=== PATIENT | male | born 1955 | race Caucasian/White ===

== ENCOUNTER 2016-12-16 22:57 | Emergency (ER) | payer OTHER ==
[~2016-12-16] VITALS: Ht 170.1 cm; Wt 77.1 kg
[~2016-12-16 22:57] MED LIST: DAYPRO600 M1 PO; ROBAXIN750 MG PO; VICODIN 500 MG-1 TAB PO
[2016-12-16 23:05] VITALS: BP 158/85
[2016-12-16] MEDS ORDERED: TRAMADOL HCL50 MG PO (23:06)
[2016-12-16] MEDS ORDERED: LISINOPRIL20 MG PO (23:07)
[2016-12-16] MEDS ORDERED: METOPROLOL TART50 M1 PO (23:07)
[2016-12-17] MEDS ORDERED: CYCLOBENZAPRINE10 MG PO (01:44)
== END 2016-12-17 02:13 | disposition home or self-care (01) ==
LOC: ED 22:57
DX: M54.5 Low back pain (principal); F17.200 Nicotine dependence, unspecified, uncomplicated

== ENCOUNTER → 2017-01-31 | Outpatient (CLI) | payer OTHER ==
[~2017-01-31] MED LIST changes: +CYCLOBENZAPRINE10 MG PO; +LISINOPRIL20 MG PO; +METOPROLOL TART50 M1 PO; +TRAMADOL HCL50 MG PO
== END | disposition home or self-care (01) ==
LOC: US 16:22
DX: M79.89 Other specified soft tissue disorders (principal)

== ENCOUNTER 2017-02-21 15:07 | Emergency (ER) | payer OTHER ==
[~2017-02-21] VITALS: Wt 79.4 kg
[2017-02-21 15:45] LABS: BASO # 0.1 10*3/uL (0.0-0.1); BASO % 0.7 % (0.0-1.0); EOS # 0.1 10*3/uL (0.0-0.4); HEMATOCRIT 41.8 % (42.0-52.0); HEMOGLOBIN 14.4 g/dl (14.0-18.0); LYMPH # 2.6 10*3/uL (1.3-4.4); MEAN CELL VOLUME 88.9 fl (80.0-94.0); MEAN CORPUSCULAR HGB 30.6 pg (27.0-31.0); MEAN CORPUSCULAR HGB CONC 34.4 g/dl (33.0-37.0); MEAN PLATELET VOLUME 8.9 fl (9.6-12.3); MONO # 1.5 10*3/uL (0.1-1.0); NEUT # 7.9 10*3/uL (2.3-7.9); NEUT % 64.6 % (47.0-73.0); PLATELET COUNT AUTOMATED 255 10*3/uL (130-400); RED CELL DISTRI WIDTH 12.5 % (0-14.5); WHITE BLOOD COUNT 12.3 10*3/uL (4.8-10.8)
[2017-02-21 15:59] LABS: ACT PARTIAL THROMBO TIME 26.1 SECONDS (20.8-31.5)
[2017-02-21 16:04] LABS: ALBUMIN 2.5 gm/dl (3.1-4.5); ALKALINE PHOSPHATASE 79 U/L (45-117); BUN 12 mg/dl (7-24); CHLORIDE 101 mmol/L (98-107); CREATININE 0.72 mg/dL (0.70-1.30); LIPASE 168 U/L (73-393); POTASSIUM 3.5 mmol/L (3.5-5.1); SGOT/AST 17 IU/L (3-35); SGPT/ALT 24 U/L (12-78); SODIUM 136 mmol/L (136-145); TOTAL PROTEIN 6.3 gm/dL (6.4-8.2)
[2017-02-21 16:06] LABS: TROPONIN I < 0.015 ng/ml (<0.045)
[2017-02-21 18:45] VITALS: BP 145/95
== END 2017-02-21 21:38 | disposition other institution (70) ==
LOC: ED 15:07
PROVIDERS: Physician Assistant
DX: I26.92 Saddle embolus of pulmonary artery without acute cor pulmonale (principal); F17.210 Nicotine dependence, cigarettes, uncomplicated; E11.9 Type 2 diabetes mellitus without complications; J44.9 Chronic obstructive pulmonary disease, unspecified; I25.10 Atherosclerotic heart disease of native coronary artery without angina pectoris

== ENCOUNTER 2018-11-11 07:21 | Emergency (ER) | payer OTHER ==
[~2018-11-11] VITALS: Ht 170.1 cm; Wt 79.4 kg
--- NOTE | ~2018-11-11 | EKG ---
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
--- NOTE | ~2018-11-11 | EKG ---
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
[2018-11-11 07:26] VITALS: BP 121/70
[2018-11-11 07:52] LABS: BASO # 0.1 10*3/uL (0.0-0.1); BASO % 0.8 % (0.0-1.0); EOS # 0.2 10*3/uL (0.0-0.4); EOS % 1.8 % (1.0-4.0); HEMATOCRIT 49.1 % (42.0-52.0); HEMOGLOBIN 16.4 g/dl (14.0-18.0); LYMPH # 2.4 10*3/uL (1.3-4.4); LYMPH % 24.3 % (27.0-41.0); MEAN CELL VOLUME 90.6 fl (80.0-94.0); MEAN CORPUSCULAR HGB 30.3 pg (27.0-31.0); MEAN CORPUSCULAR HGB CONC 33.4 g/dl (33.0-37.0); MEAN PLATELET VOLUME 9.6 fl (9.6-12.3); MONO # 1.2 10*3/uL (0.1-1.0); NEUT # 5.9 10*3/uL (2.3-7.9); NEUT % 60.9 % (47.0-73.0); PLATELET COUNT AUTOMATED 235 10*3/uL (130-400); RED BLOOD COUNT 5.42 10*6/uL (4.50-5.90); WHITE BLOOD COUNT 9.7 10*3/uL (4.8-10.8)
[2018-11-11 08:03] LABS: ACT PARTIAL THROMBO TIME 27.9 SECONDS (20.0-32.1)
[2018-11-11 08:09] LABS: ALKALINE PHOSPHATASE 85 U/L (45-117); BUN 12 mg/dl (7-24); CHLORIDE 108 mmol/L (98-107); SGOT/AST 23 IU/L (3-35); SGPT/ALT 30 U/L (12-78); SODIUM 140 mmol/L (136-145); TOTAL PROTEIN 6.5 gm/dL (6.4-8.2)
[2018-11-11 08:12] LABS: TROPONIN I < 0.015 ng/ml (<0.045)
== END 2018-11-11 12:13 | disposition home or self-care (01) ==
LOC: ED 07:21
PROVIDERS: Emergency Medicine
DX: R09.1 Pleurisy (principal); R07.89 Other chest pain; R06.02 Shortness of breath; F17.200 Nicotine dependence, unspecified, uncomplicated; Z79.899 Other long term (current) drug therapy; Z90.89 Acquired absence of other organs

== ENCOUNTER → 2020-04-20 | Outpatient (CLI) | payer OTHER | END | disposition home or self-care (01) | LOC: RAD 10:18 | PROVIDERS: ATTEND Family Medicine | DX: S29.9XXA Unspecified injury of thorax, initial encounter (principal); X58.XXXA Exposure to other specified factors, initial encounter; Y93.89 Activity, other specified; Y92.89 Other specified places as the place of occurrence of the external cause; Y99.8 Other external cause status ==

== ENCOUNTER → 2021-05-02 | Outpatient (CLI) | payer OTHER ==
[2021-05-02 17:43] LABS: CREATININE 0.76 mg/dL (0.70-1.30)
== END | disposition home or self-care (01) ==
LOC: LAB 15:43 → CT 15:43
PROVIDERS: ATTEND Family Medicine
DX: I27.82 Chronic pulmonary embolism (principal)

== ENCOUNTER 2021-10-07 18:52 | Emergency (ER) | payer OTHER ==
[~2021-10-07] VITALS: Ht 170.1 cm; Wt 77.1 kg
[2021-10-07 19:03] VITALS: BP 123/59
[2021-10-07 20:39] LABS: BASO # 0.1 10*3/uL (0.0-0.1); BASO % 1.1 % (0.0-1.0); EOS # 0.1 10*3/uL (0.0-0.4); EOS % 1.6 % (1.0-4.0); HEMATOCRIT 44.6 % (42.0-52.0); LYMPH # 2.3 10*3/uL (1.3-4.4); LYMPH % 32.3 % (27.0-41.0); MEAN CELL VOLUME 88.3 fl (80.0-94.0); MEAN CORPUSCULAR HGB 29.9 pg (27.0-31.0); MEAN CORPUSCULAR HGB CONC 33.9 g/dl (33.0-37.0); MEAN PLATELET VOLUME 9.8 fl (9.6-12.3); MONO # 1.1 10*3/uL (0.1-1.0); MONO % 15.2 % (3.0-9.0); NEUT # 3.5 10*3/uL (2.3-7.9); NEUT % 49.7 % (47.0-73.0); PLATELET COUNT AUTOMATED 265 10*3/uL (130-400); RED BLOOD COUNT 5.05 10*6/uL (4.50-5.90); RED CELL DISTRI WIDTH 12.7 % (0-14.5); WHITE BLOOD COUNT 7.1 10*3/uL (4.8-10.8)
[2021-10-07 21:01] LABS: CHLORIDE 105 mmol/L (98-107); CREATININE 0.75 mg/dL (0.70-1.30); POTASSIUM 3.4 mmol/L (3.5-5.1); SGOT/AST 20 IU/L (3-35); SGPT/ALT 30 U/L (12-78); SODIUM 137 mmol/L (136-145); TOTAL PROTEIN 6.4 gm/dL (6.4-8.2)
[2021-10-07 21:03] LABS: ALKALINE PHOSPHATASE 81 U/L (45-117); BUN 14 mg/dl (7-24)
== END 2021-10-08 00:12 | disposition home or self-care (01) ==
LOC: ED 18:52
PROVIDERS: Emergency Medicine
DX: U07.1 COVID-19 (principal); I10 Essential (primary) hypertension; Z90.89 Acquired absence of other organs

== ENCOUNTER → 2021-10-07 | Outpatient (CLI) | payer OTHER | END | disposition home or self-care (01) | LOC: COVID19 12:21 | PROVIDERS: ATTEND Internal Medicine | DX: U07.1 COVID-19 (principal) ==

== ENCOUNTER 2022-09-03 09:28 | Emergency (ER) | payer OTHER ==
[~2022-09-03] VITALS: Wt 78.9 kg
[2022-09-03 09:45] VITALS: BP 158/80
[2022-09-03 09:53] LABS: BASO # 0.1 10*3/uL (0.0-0.1); BASO % 0.9 % (0.0-1.0); EOS # 0.2 10*3/uL (0.0-0.4); EOS % 2.1 % (1.0-4.0); HEMATOCRIT 45.4 % (42.0-52.0); LYMPH # 3.8 10*3/uL (1.3-4.4); LYMPH % 39.4 % (27.0-41.0); MEAN CELL VOLUME 92.1 fl (80.0-94.0); MEAN CORPUSCULAR HGB 30.6 pg (27.0-31.0); MEAN CORPUSCULAR HGB CONC 33.3 g/dl (33.0-37.0); MEAN PLATELET VOLUME 9.9 fl (9.6-12.3); MONO % 9.9 % (3.0-9.0); NEUT # 4.6 10*3/uL (2.3-7.9); NEUT % 47.6 % (47.0-73.0); PLATELET COUNT AUTOMATED 235 10*3/uL (130-400); RED BLOOD COUNT 4.93 10*6/uL (4.50-5.90); RED CELL DISTRI WIDTH 12.9 % (0-14.5); WHITE BLOOD COUNT 9.7 10*3/uL (4.8-10.8)
[2022-09-03 10:16] LABS: ALKALINE PHOSPHATASE 69 U/L (46-116); BUN 14 mg/dl (9-23); CHLORIDE 108 mmol/L (98-107); POTASSIUM 3.9 mmol/L (3.4-5.1); SGPT/ALT 20 U/L (10-49); TOTAL PROTEIN 6.2 gm/dL (6.0-8.0)
== END 2022-09-03 14:04 | disposition home or self-care (01) ==
LOC: ED 09:28
PROVIDERS: Internal Medicine
DX: R07.89 Other chest pain (principal); M62.838 Other muscle spasm; I10 Essential (primary) hypertension

== ENCOUNTER 2023-10-31 07:27 | Emergency (ER) | payer OTHER ==
[~2023-10-31] VITALS: Ht 170.1 cm; Wt 77.1 kg
[2023-10-31 07:40] VITALS: BP 169/69
[2023-10-31 08:05] LABS: BASO # 0.1 10*3/uL (0.0-0.1); EOS # 0.2 10*3/uL (0.0-0.4); HEMATOCRIT 46.7 % (42.0-52.0); LYMPH # 4.3 10*3/uL (1.3-4.4); LYMPH % 42.7 % (27.0-41.0); MEAN CELL VOLUME 91.2 fl (80.0-94.0); MEAN CORPUSCULAR HGB 29.9 pg (27.0-31.0); MEAN CORPUSCULAR HGB CONC 32.8 g/dl (33.0-37.0); MEAN PLATELET VOLUME 9.7 fl (9.6-12.3); MONO # 1.2 10*3/uL (0.1-1.0); MONO % 11.8 % (3.0-9.0); NEUT # 4.2 10*3/uL (2.3-7.9); NEUT % 42.2 % (47.0-73.0); PLATELET COUNT AUTOMATED 262 10*3/uL (130-400); RED BLOOD COUNT 5.12 10*6/uL (4.50-5.90); RED CELL DISTRI WIDTH 13.3 % (0-14.5)
[2023-10-31 08:19] LABS: ACT PARTIAL THROMBO TIME 29.4 SECONDS (20.0-32.1)
[2023-10-31 08:33] LABS: ALKALINE PHOSPHATASE 84 U/L (46-116); BUN 13 mg/dl (9-23); CHLORIDE 107 mmol/L (98-107); POTASSIUM 4.1 mmol/L (3.4-5.1); SGPT/ALT 22 U/L (5-49); TOTAL PROTEIN 6.4 gm/dL (6.0-8.0)
[2023-10-31] MEDS ORDERED: ATORVASTATIN CA10 M1 PO (09:05)
[2023-10-31] MEDS ORDERED: ELIQUIS5 M1 PO (09:05)
[2023-10-31] MEDS ORDERED: ZITHROMAX250 MG PO (09:12)
== END 2023-10-31 09:23 | disposition home or self-care (01) ==
LOC: ED 07:27
PROVIDERS: Emergency Medicine
DX: J20.9 Acute bronchitis, unspecified (principal); J21.9 Acute bronchiolitis, unspecified; I10 Essential (primary) hypertension; Z79.899 Other long term (current) drug therapy; Z86.711 Personal history of pulmonary embolism; Z88.8 Allergy status to other drugs, medicaments and biological substances

== ENCOUNTER → 2024-01-31 | Outpatient (CLI) | payer OTHER ==
[~2024-01-31] MED LIST changes: +ATORVASTATIN CA10 M1 PO; +ELIQUIS5 M1 PO; +ZITHROMAX250 MG PO
== END | disposition home or self-care (01) ==
LOC: US 10:00
PROVIDERS: ATTEND Internal Medicine Nephrology
DX: I65.23 Occlusion and stenosis of bilateral carotid arteries (principal); H43.393 Other vitreous opacities, bilateral

== ENCOUNTER → 2024-02-20 | Outpatient (CLI) | payer OTHER ==
[2024-02-20 10:13] LABS: BASO # 0.1 10*3/uL (0.0-0.1); EOS # 0.2 10*3/uL (0.0-0.4); EOS % 1.7 % (1.0-4.0); HEMATOCRIT 45.5 % (42.0-52.0); LYMPH # 3.7 10*3/uL (1.3-4.4); LYMPH % 41.8 % (27.0-41.0); MEAN CORPUSCULAR HGB 29.4 pg (27.0-31.0); MEAN CORPUSCULAR HGB CONC 32.3 g/dl (33.0-37.0); MEAN PLATELET VOLUME 9.4 fl (9.6-12.3); MONO # 0.8 10*3/uL (0.1-1.0); MONO % 9.5 % (3.0-9.0); NEUT % 45.9 % (47.0-73.0); PLATELET COUNT AUTOMATED 253 10*3/uL (130-400); RED CELL DISTRI WIDTH 12.7 % (0-14.5); WHITE BLOOD COUNT 8.8 10*3/uL (4.8-10.8)
[2024-02-20 10:59] LABS: ALKALINE PHOSPHATASE 75 U/L (46-116); BUN 16 mg/dl (9-23); CHLORIDE 106 mmol/L (98-107); CHOLESTEROL 139 mg/dL (<200); LDL CHOLESTEROL 66 mg/dL (9-159); POTASSIUM 4.3 mmol/L (3.4-5.1); SGPT/ALT 20 U/L (5-49); TOTAL PROTEIN 6.5 gm/dL (6.0-8.0); TRIGLYCERIDES 97 mg/dl (<150)
== END | disposition home or self-care (01) ==
LOC: LAB 09:55
PROVIDERS: ATTEND Internal Medicine Cardiovascular Disease
DX: Z01.810 Encounter for preprocedural cardiovascular examination (principal); I65.21 Occlusion and stenosis of right carotid artery; I10 Essential (primary) hypertension; E78.2 Mixed hyperlipidemia

== ENCOUNTER → 2024-02-27 | Outpatient (CLI) | payer OTHER ==
[~2024-02-27] MED LIST changes: +ASPIRIN81 M1 PO
== END | disposition home or self-care (01) ==
LOC: CARD 07:15
PROVIDERS: ATTEND Internal Medicine Nephrology
DX: I51.7 Cardiomegaly (principal); G45.9 Transient cerebral ischemic attack, unspecified

== ENCOUNTER → 2024-02-28 | Outpatient (CLI) | payer OTHER ==
[~2024-02-28] MED LIST changes: +Regadenoson 0.4 MG/5 ML SYR IV ONE
== END | disposition home or self-care (01) ==
LOC: CARD 00:03
PROVIDERS: ATTEND Internal Medicine Cardiovascular Disease
DX: Z01.810 Encounter for preprocedural cardiovascular examination (principal); I65.21 Occlusion and stenosis of right carotid artery; I10 Essential (primary) hypertension; E78.2 Mixed hyperlipidemia; F17.200 Nicotine dependence, unspecified, uncomplicated

== ENCOUNTER → 2024-02-29 | Outpatient (CLI) | payer OTHER ==
[~2024-02-29] MED LIST changes: +IOHEXOL 350 MG/ML 100 ML VIAL IV ONE; -Regadenoson 0.4 MG/5 ML SYR IV ONE; +SODIUM CHLORIDE 0.9% 100 ML BAG IV ONE; +Technetium Tc 99M Tetrofosmi 0.23 MG KIT IJ SCH
== END | disposition home or self-care (01) ==
LOC: CT 01:13
PROVIDERS: ATTEND Internal Medicine Cardiovascular Disease
DX: I65.21 Occlusion and stenosis of right carotid artery (principal); R91.8 Other nonspecific abnormal finding of lung field; I10 Essential (primary) hypertension; E78.2 Mixed hyperlipidemia; F17.200 Nicotine dependence, unspecified, uncomplicated

== ENCOUNTER 2024-03-22 10:19 | Emergency (ER) | payer OTHER ==
[~2024-03-22] VITALS: Ht 170.1 cm; Wt 78.5 kg
[~2024-03-22 10:19] MED LIST changes: -IOHEXOL 350 MG/ML 100 ML VIAL IV ONE; -SODIUM CHLORIDE 0.9% 100 ML BAG IV ONE; -Technetium Tc 99M Tetrofosmi 0.23 MG KIT IJ SCH
[2024-03-22] MEDS ORDERED: AVPAK AZITHROM250 M1 PO (11:02)
== END 2024-03-22 11:11 | disposition home or self-care (01) ==
LOC: ED 10:19
DX: J32.9 Chronic sinusitis, unspecified (principal); I10 Essential (primary) hypertension; I25.10 Atherosclerotic heart disease of native coronary artery without angina pectoris; E78.00 Pure hypercholesterolemia, unspecified; Z98.890 Other specified postprocedural states

== ENCOUNTER 2024-08-31 10:08 | Emergency (ER) | payer OTHER ==
[~2024-08-31] VITALS: Ht 170.1 cm; Wt 79.4 kg
[~2024-08-31 10:08] MED LIST changes: +AVPAK AZITHROM250 M1 PO
[2024-08-31 10:25] VITALS: BP 130/74
[2024-08-31] MEDS ORDERED: HYDROCHLOROTHIA25 M1 PO (10:30)
[2024-08-31] MEDS ORDERED: AMLODIPINE BESY10 MG PO (10:30)
[2024-08-31] MEDS ORDERED: NATURE'S BLEND100 M2 PO (10:30)
[2024-08-31] MEDS ORDERED: IMDUR SA30 MG PO (10:30)
[2024-08-31] MEDS ORDERED: Acetaminophen/Oxycodone 5 MG/325 MG TABLET PO ONE (10:35)
[2024-08-31] MEDS ORDERED: TRAMADOL HCL50 MG PO (11:02)
== END 2024-08-31 11:07 | disposition home or self-care (01) ==
LOC: ED 10:08
DX: S43.401A Unspecified sprain of right shoulder joint, initial encounter (principal); I10 Essential (primary) hypertension; E78.5 Hyperlipidemia, unspecified; Z79.82 Long term (current) use of aspirin; Z79.899 Other long term (current) drug therapy; Z86.718 Personal history of other venous thrombosis and embolism; Z86.711 Personal history of pulmonary embolism; W18.39XA Other fall on same level, initial encounter; Y93.89 Activity, other specified; Y92.89 Other specified places as the place of occurrence of the external cause; Y99.8 Other external cause status